=== PATIENT | male | born 1950 | race Caucasian/White ===

== ENCOUNTER 2017-02-03 21:48 | Inpatient (IN) | payer OTHER ==
[~2017-02-03] VITALS: Ht 167.6 cm; Wt 68.9 kg
[2017-02-03 23:35] VITALS: BP 149/79; PULSE 92; TEMP 37.1; O2SAT 96; Ht 167.6 cm; Wt 68.9 kg
[2017-02-04] MEDS ORDERED: LORAZEPAM 2 MG/ML 1 ML VIAL IV PRN (00:30)
[2017-02-04] MEDS ORDERED: POLYETHYLENE (MIRALAX) 17 GM PACK PO PRN (00:30)
[2017-02-04] MEDS ORDERED: ACETAMINOPHEN 325 MG TAB PO PRN (00:30)
[2017-02-04] MEDS ORDERED: MAGNESIUM HYDROXIDE SUSP 30 ML UDC PO PRN (00:30)
[2017-02-04] MEDS ORDERED: ONDANSETRON INJ 2 MG/ML 2 ML VIAL IV PRN (00:30)
[2017-02-04] MEDS ORDERED: ALUMINUM/MAGNESIUM/SIMETH (MAALOX MAX) 30 ML UDC PO PRN (00:30)
[2017-02-04] MEDS: PATIENT'S ALLERGY INFO NEEDS ENTERED SCH ×2 (01:25→01:45)
[2017-02-04] MEDS ORDERED: IPRA1AER2 INH (01:40)
[2017-02-04] MEDS ORDERED: ISM20 PO (01:40)
[2017-02-04] MEDS ORDERED: GUAI1TAB75 PO (01:40)
[2017-02-04] MEDS ORDERED: LISI-461 PO (01:45)
[2017-02-04] MEDS ORDERED: SYMIN INH (01:45)
[2017-02-04] MEDS ORDERED: HYDR-5688 PO (01:45)
[2017-02-04] MEDS ORDERED: OMEP20CA9 PO (01:45)
[2017-02-04] MEDS ORDERED: NIAC500T7 PO (01:45)
[2017-02-04] MEDS ORDERED: ATOR-54 PO (01:45)
[2017-02-04] MEDS ORDERED: NICO21DI35 TD (01:45)
[2017-02-04 04:00] VITALS: BP 140/81; PULSE 82; TEMP 36.6; O2SAT 95
[2017-02-04] MEDS ORDERED: HYDROCODONE/ACETAMOPHEN 5/325MG TAB PO PRN (04:30)
[2017-02-04] MEDS ORDERED: IPRATROPIUM BROMIDE/ALBUTEROL respimat INH INH PRN (04:30)
--- NOTE | 2017-02-04 06:17 | History and Physical ---
History & Physical Date & Time of Service: February 04, 2017 at 05:53 Chief Complaint: Seizure Primary Care Physician: No Doctor, Assigned History of Present Illness Source: patient 66 y/o M Hx HTN, HPL, COPD, splenectomy. Pt was recently treated for a pneumonia and had been d/cd from [facility] a few days prior. He was descending his stairway earlier in the day and states that he acutely lost strength in his R leg. He used the railing to maintain his balance and states that he lost all his strength when he arrived at the bottom of the stairs and collapsed on the landing. He remembers his walking in after a few minutes and states that he may have been having involuntary movements of his L hand. He though he might be having a seizure but he did not lose consciousness. He was unable to express himself for several minutes although he states that he clearly comprehended what was being said to him. The pt was transported to the hospital an states that his symptoms spontaneously resolved on route. He denies CP, SOB, N/V, FLOOD, visual deficits or recent fevers. He was transferred to [facility] following evaluation in the [place] ER. Past Medical/Surgical History 1) COPD 2) HTN 3) HPL 4) L4-5 stenosis 5) GERD 6) Splenectomy 7) Depression Family History Mother CAD - cause of fathers not known Social History Smokes between 10 cigarettes to 2 packs daily - does not drink alcohol - disabled Smoking Status: Current Some Day Smoker Allergies Coded Allergies: Ibuprofen (Verified Allergy, Unknown, GI SYMPTOMS, 02/04/17) Rosuvastatin (Verified Allergy, Unknown, RASH, 02/04/17) Simvastatin (Verified Allergy, Unknown, RASH, 02/04/17) muscle pain Unobtainable (Verified Allergy, Unknown, ANAPHYLAXIS, 02/04/17) unknown blood pressure medication pt just "shuts down" Home Medications Scheduled Atorvastatin (Lipitor), 1 TAB PO DAILY Budesonide/Formoterol Fumarate (Symbicort 160-4.5 Mcg/Act), 2 INHA INH BID Guaifenesin La (Guaifenesin Er), 600 MG PO Q12H Isosorbide Mononitrate (Isosorbide Mononitrate), 30 MG PO DAILY Lisinopril (Lisinopril), 1 TAB PO DAILY Niacinamide (Niacin), 500 MG PO DAILY Nicotine (Nicoderm Cq 21MG Patch), 1 PATCH TD DAILY Omeprazole (Prilosec), 1 CAP PO DAILY Scheduled PRN Hydrocodone/Acetaminophen 5MG/325MG ([place] 5MG/325MG), 1 TAB PO TID PRN for Pain Ipratropium-Albuterol (Combivent Respimat), 1 PUFFS INH Q4 PRN for Wheezing Review of Systems Constitutional: No chills, No fever, No sweats Eyes: No worsening of vision ENT: No hearing loss, No nasal symptoms Respiratory: No cough, No shortness of breath, No sputum, No wheezing Cardiovascular: No PND, No chest pain, No orthopnea Abdomen: No nausea, No pain, No vomiting Musculoskeletal: No joint pain, No muscle pain Genitourinary - Male: No dysuria, No hematuria, No urinary frequency, No urinary urgency Neurologic: + balance problems, + paralysis, + weakness, No memory loss Psychiatric: No depression symptoms Endocrine: No fatigue Hematologic / Lymphatic: No abnormal bleeding/bruising Integumentary: No rash Allergic / Immunologic: No environmental allergies Physical Exam Vital Signs Date Time Temp Pulse Resp B/P Pulse Ox O2 Delivery O2 Flow Rate FiO2 02/04/17 04:00 Nasal Cannula 2.0 02/04/17 04:00 36.6 82 18 140/81 95 Room Air 02/03/17 23:59 Nasal Cannula 2.0 02/03/17 23:35 37.1 92 22 149/79 96 Nasal Cannula 2.0 General Appearance: WD/WN, no apparent distress Head: normocephalic, atraumatic Eyes: normal inspection, PERRL, EOMI ENT: normal ENT inspection, pharynx normal Neck: supple, no JVD Respiratory/Chest: no respiratory distress, no accessory muscle use, + decreased breath sounds Cardiovascular: regular rate, rhythm, no edema, no gallop, no JVD, no murmur, normal peripheral pulses Abdomen/GI: normal bowel sounds, non tender, soft Back: normal inspection, normal range of motion Extremities/Musculoskelatal: normal inspection, no calf tenderness, normal capillary refill, no pedal edema, normal range of motion 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 Pt was recently treated for a pneumonia and had been d/cd from [facility] a few days prior. He was descending his stairway earlier in the day and states that he acutely lost strength in his R leg. He used the railing to maintain his balance and states that he lost all his strength when he arrived at the bottom of the stairs and collapsed on the landing. He remembers his walking in after a few minutes and states that he may have been having involuntary movements of his L hand. He though he might be having a seizure but he did not lose consciousness. He was unable to express himself for several minutes although he states that he clearly comprehended what was being said to him. The pt was transported to the hospital an states that his symptoms spontaneously resolved on route. He denies CP, SOB, N/V, FLOOD, visual deficits or recent fevers. 1) Acute neuro deficits - symptoms most likely represent acute R sided weakness with expressive aphasia and are consistent with a TIA rather than seizure activity. Movement of the L arm may have resulted from an inability to move the R arm. We will obtain a neurology consult, start the pt on Plavix and monitor on telemetry with neurochecks. He is scheduled for an MRI/MRA and carotid dopplers. Would not increase statin dose as he apparently has sensitivities to 2 alternative statins. 2) COPD - recent PNM - does not currently c/o SOB or fevers - cont prescribed inhalers - 02 as needed 3) HTN - hold Lisinopril due to suspicion of TIA. 4) Pt smokes up to 2 packs daily - informed that this may increase CVA risk and is generally unadvisable for health reasons Full code - Heparin prophylaxis Total time for this admit including review of labs, meds, EKG, imaging, resords from [place] - discussion with pt and ER attending - 38 min Level of Care Telemetry Advanced Directives Existing Living Will: No Existing Power of Weir Fisherman: No Resuscitation Status FULL RESUSCITATION VTE Prophylaxis VTE Risk Assessment Done? Y/N: Yes Risk Level: Low Given or contraindicated: Unfractionated heparin SQ
[2017-02-04] MEDS: ATORVASTATIN 20 MG TAB PO SCH (07:42)
[2017-02-04] MEDS: PANTOprazole SOD 40 MG TAB PO SCH (07:43)
[2017-02-04] MEDS: ISOSORBIDE MONONITRATE 30 MG TABCR PO SCH (07:43)
[2017-02-04] MEDS: GUAIFENESIN 600 MG TABCR PO SCH ×2 (07:43→20:49)
[2017-02-04] MEDS: NICOTINE 21 MG/24 HR TDSY TD SCH (07:44)
[2017-02-04 07:59] LABS: CHOLESTEROL/HDL RATIO 3.6
[2017-02-04 08:00] VITALS: BP 136/85; PULSE 70; TEMP 37; O2SAT 95
[2017-02-04] MEDS: BUDESONIDE/FORMOTEROL FUMARATE 160/4.5 60 PUFFS/INHALER INH SCH ×2 (08:04→20:52)
[2017-02-04 08:09] LABS: HEMATOCRIT 37.3 % (42-52); MEAN CELL VOLUME 70.1 fL (80-100); MEAN CORPUSCULAR HEMOGLOBIN 23.9 pg (25-34); MEAN PLATELET VOLUME 9.4 fL (7.4-10.4); PLATELET COUNT 315 K/uL (130-400); RED BLOOD COUNT 5.32 M/uL (4.7-6.1)
[2017-02-04 08:19] LABS: PARTIAL THROMBOPLASTIN RATIO 0.9; PROTHROMBIN TIME (PATIENT) 10.3 SECONDS (9.0-12.0)
[2017-02-04] MEDS: CLOPIDOGREL BISULFATE 75 MG TAB PO SCH (08:38)
[2017-02-04] MEDS ORDERED: LISINOPRIL 10 MG TAB PO SCH (09:00)
[2017-02-04 09:15] LABS: ESTIMATED AVERAGE GLUCOSE 131 mg/dl; HA1C FLAG Normal (Normal)
[2017-02-04 11:05] LABS: CALCIUM 8.3 mg/dl (8.5-10.1); CREATININE 0.83 mg/dl (0.60-1.40)
[2017-02-04 12:00] VITALS: BP 128/82; PULSE 112; TEMP 36.6; O2SAT 96
--- NOTE | 2017-02-04 12:57 | Neurology Consultation ---
Neurology Consultation Date of Consultation: February 04, 2017. Attending Physician: Shanice Mariee MD Primary Care Physician: No Doctor, Assigned Reason for Consultation: "Acute neuro deficits, transfer from [facility]" History of Present Illness Source: patient, hospital records The patient is a 66-year-old male who had complained of sudden weakness of the legs while walking down stairs yesterday resulting in a minor fall. He recalled having some involuntary movements of the left hand and was concerned that he may be having a seizure. There was no associated loss of consciousness or more generalized shaking of the limbs. He was initially taken to [facility] although subsequently transferred to [facility] for further evaluation and management. Past medical history notable for recent treatment for pneumonia at [facility], hypertension, COPD, and lumbar spinal stenosis. The admission history indicates the presence of associated aphasia. Currently, the patient does not have any specific neurological complaints. He recalls the fall that occurred while walking down his steps at home yesterday and indicates the event was preceded by a feeling of numbness and discomfort affecting his left leg, around the knee. He does admit that he has had orthopedic issues with the left leg previously. The patient also recalls having some difficulty with his speech at the time of the event and believes his speech sounded slurred. The patient also indicates that yesterday's event occurred around 3 in the afternoon. He had undergone a cardiac stress test earlier that morning. He had been feeling well and had gone out for some breakfast prior to returning home. Family History Family history notable for coronary artery disease in the mother Allergies Coded Allergies: Ibuprofen (Verified Allergy, Unknown, GI SYMPTOMS, 02/04/17) Rosuvastatin (Verified Allergy, Unknown, RASH, 02/04/17) Simvastatin (Verified Allergy, Unknown, RASH, 02/04/17) muscle pain Unobtainable (Verified Allergy, Unknown, ANAPHYLAXIS, 02/04/17) unknown blood pressure medication pt just "shuts down" Current Inpatient Medications Current Inpatient Medications Medications (Trade) Dose Ordered Sig/Bettina Route Start Time Stop Time Status Last Admin Dose Admin Acetaminophen (Tylenol Tab) 650 mg Q4H PRN PO 02/04/17 00:30 03/06/17 00:29 Al Hydrox/Mg Hydrox/Simethicone (Maalox Max Susp) 15 ml Q4H PRN PO 02/04/17 00:30 03/06/17 00:29 Magnesium Hydroxide (Milk Of Magnesia Susp) 30 ml Q12H PRN PO 02/04/17 00:30 03/06/17 00:29 Ondansetron HCl (Zofran Inj) 4 mg Q6H PRN IV 02/04/17 00:30 03/06/17 00:29 Polyethylene (Miralax Powder Packet) 17 gm DAILY PRN PO 02/04/17 00:30 03/06/17 00:29 Lorazepam (Ativan Inj) 2 mg Q4H PRN IV 02/04/17 00:30 03/06/17 00:29 Atorvastatin Calcium (Lipitor Tab) 20 mg DAILY PO 02/04/17 09:00 03/06/17 08:59 02/04/17 07:42 20 MG Budesonide/ Formoterol Fumarate (Symbicort 160/ 4.5 Inh) 1 puffs BID INH 02/04/17 09:00 03/06/17 08:59 02/04/17 08:04 1 PUFFS Guaifenesin (Mucinex Contr Rel Tab) 600 mg Q12H PO 02/04/17 09:00 03/06/17 08:59 02/04/17 07:43 600 MG Acetaminophen/ Hydrocodone Bitart ([place] 5/325 Tab) 1 tab TID PRN PO 02/04/17 04:30 02/18/17 04:29 Albuterol/ Ipratropium (Combivent Respimat Inh) 1 puffs Q4 PRN INH 02/04/17 04:30 03/06/17 04:29 Isosorbide Mononitrate (Imdur Ext Rel Tab) 30 mg DAILY PO 02/04/17 09:00 03/06/17 08:59 02/04/17 07:43 30 MG Nicotine (Nicoderm Cq 21MG Patch) 1 patch DAILY TD 02/04/17 09:00 03/06/17 08:59 02/04/17 07:44 1 PATCH Pantoprazole Sodium (Protonix Tab) 40 mg DAILY PO 02/04/17 09:00 03/06/17 08:59 02/04/17 07:43 40 MG Miscellaneous (Remove Nicoderm Patch) 1 ea DAILY N/A 02/04/17 09:00 03/06/17 08:59 02/04/17 08:04 1 EA Clopidogrel Bisulfate (plAVix TAB) 75 mg QAM PO 02/04/17 09:00 03/06/17 08:59 02/04/17 08:38 75 MG Heparin Sodium (Porcine) (Heparin Sq 5000 Unit/0.5ml) 5,000 unit Q8 SQ 02/04/17 06:00 03/06/17 05:59 UNV Review of Systems The patient denies headache, fever, chills, vision change, hearing loss, chest pain, palpitations, shortness of breath, coughing, wheezing, abdominal pain, diarrhea, dysuria, incontinence, muscle pain, joint pain, swollen glands, rash, depression or anxiety. A full 10 point review of systems was obtained from this patient with pertinent positives and negatives described in history of present illness and otherwise listed above. Physical Exam Vital Signs (Past 24 Hrs): Date Time Temp Pulse Resp B/P Pulse Ox O2 Delivery O2 Flow Rate FiO2 02/04/17 04:00 Nasal Cannula 2.0 02/04/17 04:00 36.6 82 18 140/81 95 Room Air 02/03/17 23:59 Nasal Cannula 2.0 02/03/17 23:35 37.1 92 22 149/79 96 Nasal Cannula 2.0 The patient is a thin, elderly male, lying in bed, no acute distress. He is alert and oriented to person place and time. Attention and concentration normal. Recent and remote memory intact. He is able to name objects, repeat phrases, and reads text without difficulty. Fund of knowledge normal. Vocabulary normal. Visual lloyd full to confrontation. Visual acuity normal. Pupils equal round reactive to light and accommodation. Eye movements normal. Facial sensation intact. There is no facial weakness or facial droop. Palate elevates to midline. Tongue protrudes to midline. Shoulder shrug and hearing intact bilaterally. Sensation intact to light touch, temperature, vibration, and proprioception for all 4 limbs. There is no dysmetria with finger to nose or heel to langley bilaterally. Deep tendon reflexes are 2+ with the arms and legs bilaterally. Plantar responses downgoing bilaterally. Ophthalmoscopic examination reveals normal-appearing optic nerves and posterior elements. No papilledema or hemorrhages. Carotid pulses normal bilaterally, no bruits to auscultation. Musculoskeletal examination reveals normal strength and tone for all 4 limbs proximally and distally. No atrophy. No abnormal movements. Gait and station normal. Laboratory Results Past 24 Hours: 02/04/17 07:39 Test 02/04/17 07:05 02/04/17 07:39 Triglycerides Level 192 mg/dl (0-150) Cholesterol Level 171 mg/dl (0-200) HDL Cholesterol 47 mg/dl LDL Cholesterol, Calculated 86 mg/dl VLDL Cholesterol, Calculated 38 mg/dl Cholesterol/HDL Ratio 3.6 Red Blood Count 5.32 M/uL (4.7-6.1) Mean Corpuscular Volume 70.1 fL (80-100) Mean Corpuscular Hemoglobin 23.9 pg (25-34) Mean Corpuscular Hemoglobin Concent 34.0 g/dl (32-36) RDW Standard Deviation 39.9 fL (36.4-46.3) RDW Coefficient of Variation 16.7 % (11.5-14.5) Mean Platelet Volume 9.4 fL (7.4-10.4) Nucleated RBC Absolute Count (auto) 0.21 K/uL (0-0) Nucleated Red Blood Cells % 1.1 % Prothrombin Time 10.3 SECONDS (9.0-12.0) Prothromb Time International Ratio 1.0 (0.9-1.1) Activated Partial Thromboplast Time 23.6 SECONDS (21.0-31.0) Partial Thromboplastin Ratio 0.9 Impression 66-year-old male who experienced a minor fall while walking down some steps at home yesterday afternoon. He recalls having some leg weakness and slurred speech at the time of the event. These symptoms have resolved. At this point, the exact cause of this patient's presenting symptoms is a bit unclear. However , he may have had a vertebrobasilar TIA. There is no convincing evidence for a seizure disorder at this time. To what extent this patient's history of lumbar spinal stenosis and other orthopedic issues affecting the left lower limb may have contributed to his presentation is uncertain. Plan MRI of the brain to evaluate for a possible small ischemic infarct. MR angiography of the head and neck as ordered. Given the possibility of TIA, antiplatelet therapy is appropriate unless if an indication for anticoagulation is found.
[2017-02-04] MEDS ORDERED: NURSING VERBAL MED ORDER ONE (15:15)
--- NOTE | 2017-02-04 16:15 | DIAGNOSTIC IMAGING REPORT ---
MR ANGIOGRAM OF THE BRAIN CLINICAL HISTORY: Transient ischemic attack. COMPARISON STUDY: No priors. TECHNIQUE: 3-D [id number] MR angiography of the intracranial circulation is performed. 3-D tumble views are created and assessed. IV contrast was not administered for this examination. FINDINGS: The internal carotid arteries are widely patent bilaterally, as are the anterior and middle cerebral arteries. The vertebrobasilar system and posterior cerebral arteries are widely patent. The left vertebral artery is dominant in the right vertebral artery is diminutive. 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 This is best seen on axial image #132. No additional aneurysm is identified. There is no high-grade stenosis or focal vessel cutoff seen throughout the intracranial circulation. The brain parenchyma is normal as visualized. IMPRESSION: 1. 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 2. Otherwise unremarkable MR angiogram of the brain. Electronically signed by: Brian Ricks M.D. 02/04/2017 4:13 PM Dictated Date/Time: 02/04/2017 4:09 PM
--- NOTE | 2017-02-04 16:40 | DIAGNOSTIC IMAGING REPORT ---
MRI OF THE BRAIN COMBO CLINICAL HISTORY: Seizure. Transient ischemic attack. COMPARISON STUDY: No priors. TECHNIQUE: MRI of the brain was performed utilizing various T1 and T2-weighted sequences in the axial, sagittal, and coronal planes. Contrast-enhanced sequences were acquired following the administration of 6.5 cc of Gadavist. The examination is performed using the seizure protocol. FINDINGS: Brain parenchyma: There are numerous foci of T2 signal in amount within the subcortical and periventricular white matter typical appearance for microangiopathic disease. There is no hemorrhage or mass effect. There is no restricted diffusion to suggest acute ischemia. No enhancing mass lesion is identified on the postcontrast images. Irwin-white matter differentiation is preserved. No extra-axial fluid collection is seen. The cerebellar tonsils are normal in configuration. Ventricles, sulci, and cisterns: Prominent significant involutional change. Pituitary and sella: Unremarkable. Intracranial vasculature: Normal flow voids are maintained at the skull base. Orbits: The bony orbits are grossly intact. Orbital contents are normal in appearance. Sinuses and mastoids: There is a large right mastoid effusion. The left mastoid air cells and the paranasal sinuses are clear. Calvarium: Unremarkable. Cervical cord: Partially visualized cervical spinal cord is normal in morphology and signal intensity. IMPRESSION: 1. There is no hemorrhage, enhancing mass, or evidence of acute ischemia. 2. There are numerous foci of T2 signal abnormality identified throughout the subcortical and periventricular white matter. This is typical appearance for microangiopathic change. Clinical correlation will be required. 3. Large right mastoid effusion. Electronically signed by: Brian Ricks M.D. 02/04/2017 4:38 PM Dictated Date/Time: 02/04/2017 4:33 PM
[2017-02-04] MEDS: HEPARIN SOD 5000 UNIT/0.5 ML CARP SQ SCH ×2 (16:44→20:52)
--- NOTE | 2017-02-04 16:56 | DIAGNOSTIC IMAGING REPORT ---
MR ANGIOGRAM OF THE NECK COMBO CLINICAL HISTORY: Transient ischemic attack. Seizure. COMPARISON STUDY: No priors.. TECHNIQUE: Axial 3-D subtraction imaging is performed. [id number] MR angiography of the neck is performed. Subsequently, following the IV administration of 6.5 cc of Gadavist coronal MR angiogram of the neck was performed to corroborate the findings. 3-D reformats are created and assessed. All measurements were calculated based on NASCET criteria. FINDINGS: Visualized portions of the thoracic aorta are normal in caliber. The arch demonstrates 3-vessel anatomy. The subclavian arteries are widely patent bilaterally. The right common carotid artery is widely patent, as are the right internal and external carotid arteries. Mild atherosclerotic irregularity is noted in the right carotid bulb and the right proximal internal carotid artery. The left common carotid artery is widely patent. There is approximately 50% luminal narrowing at the origin of the left internal carotid artery. The remainder of the left internal carotid artery and the left external carotid artery are widely patent. The vertebral arteries are patent bilaterally. The left vertebral artery is dominant. The right vertebral artery is diminutive. The internal jugular veins are patent. The partially imaged intracranial vessels appear patent. A 3 mm aneurysm is again seen at the origin of the left anterior cerebral artery. See report of MR angiogram of the brain performed concurrently for detailed intracranial findings. IMPRESSION: 1. There is approximately 50% luminal narrowing at the origin of the left internal carotid artery. 2. The neck vessels are otherwise widely patent. 3. The right vertebral artery is diminutive. Electronically signed by: Brian Ricks M.D. 02/04/2017 4:54 PM Dictated Date/Time: 02/04/2017 4:48 PM
[2017-02-04] MEDS ORDERED: ALBUT/IPRATROP 3MG/0.5MG NEB 3 ML VIAL INH ONE (18:25)
[2017-02-04] MEDS ORDERED: LISINOPRIL 10 MG TAB PO ONE (18:47)
--- NOTE | 2017-02-04 18:49 | Hospitalist Progress Note ---
Hospitalist Progress Note Date of Service February 04, 2017. Subjective Pt evaluation today including: conversation w/ patient Pt feels completely back to normal. There was a question of 2 runs of VT on tele but RN reports likely artifact as he was shaking some dice playing a game when it happened and was asymptomatic. Results of MRI/MRAs reviewed with him. He feels much improved from his PNA and recent hospitalization from [place]. He had a Nuc Stress yesterday as an outpatient and it was after he came home he had this total body weakness and slurred speech with complete consciousness that lasted 15-20 min. Today denies any CP, has some SOB with minimal exertion, denies FLOOD or vision changes. He is quite jovial Eyes: No worsening of vision ENT: + tinnitus (chronic), No hearing loss Respiratory: + dyspnea on exertion, + shortness of breath, No cough, No sputum Cardiovascular: No chest pain Abdomen: No pain Musculoskeletal: No joint pain All Other Systems: Reviewed and Negative Objective Vital Signs Date Time Temp Pulse Resp B/P Pulse Ox O2 Delivery O2 Flow Rate FiO2 02/04/17 16:00 Room Air 02/04/17 12:00 36.6 112 18 128/82 96 02/04/17 12:00 Room Air 02/04/17 08:00 37.0 70 18 136/85 95 Room Air 02/04/17 08:00 Room Air 02/04/17 04:00 Nasal Cannula 2.0 02/04/17 04:00 36.6 82 18 140/81 95 Room Air 02/03/17 23:59 Nasal Cannula 2.0 02/03/17 23:35 37.1 92 22 149/79 96 Nasal Cannula 2.0 Physical Exam General Appearance: no apparent distress, + thin Eyes: normal inspection, sclerae normal ENT: hearing grossly normal Neck: supple, no adenopathy, thyroid normal, trachea midline, + pertinent finding (no TTP over mastoid bones) Respiratory/Chest: no respiratory distress, no accessory muscle use, + decreased breath sounds (diminished significantly throughout with very faint wheezing,not moving air well) Cardiovascular: no edema, no gallop, + tachycardia (with reg rhythm), + systolic murmur (2/6 at RUSB) Abdomen: normal bowel sounds, non tender, soft, + pertinent finding ( incisional scars on right and left side) Extremities: non-tender, no pedal edema, no calf tenderness Neurologic/Psychiatric: no motor/sensory deficits, alert, normal mood/affect, oriented x 3 Skin: normal color, warm/dry, no rash Lymphatic: no adenopathy Laboratory Results Last 24 Hours Test 02/04/17 07:05 02/04/17 07:39 02/04/17 10:25 Estimated Average Glucose 131 mg/dl Hemoglobin A1c 6.2 % Triglycerides Level 192 mg/dl Cholesterol Level 171 mg/dl HDL Cholesterol 47 mg/dl LDL Cholesterol, Calculated 86 mg/dl VLDL Cholesterol, Calculated 38 mg/dl Cholesterol/HDL Ratio 3.6 White Blood Count 19.00 K/uL Red Blood Count 5.32 M/uL Hemoglobin 12.7 g/dL Hematocrit 37.3 % Mean Corpuscular Volume 70.1 fL Mean Corpuscular Hemoglobin 23.9 pg Mean Corpuscular Hemoglobin Concent 34.0 g/dl RDW Standard Deviation 39.9 fL RDW Coefficient of Variation 16.7 % Platelet Count 315 K/uL Mean Platelet Volume 9.4 fL Nucleated RBC Absolute Count (auto) 0.21 K/uL Nucleated Red Blood Cells % 1.1 % Prothrombin Time 10.3 SECONDS Prothromb Time International Ratio 1.0 Activated Partial Thromboplast Time 23.6 SECONDS Partial Thromboplastin Ratio 0.9 Sodium Level 136 mmol/L Potassium Level 4.0 mmol/L Chloride Level 100 mmol/L Carbon Dioxide Level 29 mmol/L Anion Gap 7.0 mmol/L Blood Urea Nitrogen 24 mg/dl Creatinine 0.83 mg/dl Est Creatinine Clear Calc Drug Dose 81.1 ml/min Estimated GFR () 107.8 Estimated GFR (Non- 93.0 BUN/Creatinine Ratio 29.0 Random Glucose 82 mg/dl Calcium Level 8.3 mg/dl Total Bilirubin 0.9 mg/dl Aspartate Amino Transf (AST/SGOT) 27 U/L Alanine Aminotransferase (ALT/SGPT) 71 U/L Alkaline Phosphatase 44 U/L Total Protein 6.1 gm/dl Albumin 3.1 gm/dl Globulin 3.0 gm/dl Albumin/Globulin Ratio 1.0 Assessment and Plan 66 y/o M Hx HTN, HPL, COPD, splenectomy. Pt was recently treated for a pneumonia and had been d/cd from [facility] a few days prior. He was descending his stairway earlier in the day and states that he acutely lost strength in his R knee and then at the bottom of the stairs he felt his whole body become flaccid and had great difficulty speaking. He was unable to express himself for several minutes although he states that he clearly comprehended what was being said to him. The pt was transported to the hospital an states that his symptoms spontaneously resolved on route like a switch was turned off. He denies CP, SOB, N/V, FLOOD, visual deficits or recent fevers. 1) Acute neuro deficits/whole body weakness - completely resolved since prior to admission. MRI/MRA and carotid dopplers showed no CVA but does have left GRICELDA 3 mm aneurysm which is likely incidental finding. Also with left ICA stenosis 50 % which he states he has known about. Possible NSVT on tele but more likely interference. Neurology evaluation recommended imaging and then I discussed findings with Neuro on phone. Unclear what caused this but seems very atypical for TIA as really involved entire body - Would not increase statin dose as he apparently has sensitivities to 2 alternative statins. -encouraged continued smoking cessation -Cardiology consult to help look for arrhythmias -he may have had an ECHO at recent [place] Hospitalization for PNA and chest pain -request those records -F/u with Neuro as outpt and can get routine NS eval for aneurysm and consider EEG as outpt -continue Plavix -continue observation on telemetry for a-fib 2) COPD - recent PNM - resolving- does not currently c/o SOB or fevers - Duobebs qid - 02 as needed -smoking cessation Nicotine patch -finish out 4 more days of prednisone taper as Rxd by [facility] -continue SYmbicort, COmbivent on dc -leukocytosis likely secondary to prednisone -f/u with PCP and/or Pulm as outpt -check CXR in 3-4 weeks to ensure resolution 3) HTN/Left ICA stenosis 50%/Murmur- -ok to restart lisinopril -continue statin and Plavix, isosorbide -can check ECHO here but try to obtain records from [place] first 4) Pt smokes up to 2 packs daily -quit 2 weeks ago 5) Right large mastoid effusion-has h/o Tympanostomy tube a few years ago, no current symptoms in ear, no fevers or pain, no hearing loss or vertigo -recommend routine outpt f/u with his ENT Full code - Heparin prophylaxis
[2017-02-04 19:16] VITALS: PULSE 111; O2SAT 94
[2017-02-04] MEDS: ALBUT/IPRATROP 3MG/0.5MG NEB 3 ML VIAL INH SCH (19:16)
[2017-02-04 19:43] VITALS: BP 114/73; PULSE 109; TEMP 37; O2SAT 95
--- NOTE | 2017-02-04 22:36 | DIAGNOSTIC IMAGING REPORT ---
ULTRASOUND OF THE CAROTID ARTERIES CLINICAL HISTORY: Transient ischemic attack. Seizure. COMPARISON STUDY: MR angiogram of the neck dated 02/04/2017. TECHNIQUE: Real-time, grayscale, and color Doppler sonography of the carotid arteries is performed. Images are reviewed in the transverse and longitudinal planes. FINDINGS: Blood pressure in the right arm measures 102/67 and blood pressure in the left arm measures 137/73. The carotid arteries are patent bilaterally and demonstrate antegrade flow. There is moderate echogenic atherosclerotic plaque seen the carotid bulbs bilaterally. Normal doppler arterial waveforms are seen throughout. Velocity measurements are listed below. Common carotid peak systolic velocity (cm/sec): RIGHT: 101 LEFT: 125 ICA proximal peak systolic velocity (cm/sec): RIGHT: 69 LEFT: 125 ICA mid peak systolic velocity (cm/sec): RIGHT: 71 LEFT: 78 ICA distal peak systolic velocity (cm/sec): RIGHT: 51 LEFT: 48 ICA/CC peak systolic ratio: RIGHT: 0.7 LEFT: 1.0 Antegrade flow was shown in the vertebral arteries. The left vertebral artery waveform is greater than the right, likely due to a diminutive right vertebral artery. The external carotid arteries are patent. The subclavian arteries are patent bilaterally. IMPRESSION: 1. Atherosclerotic plaque with evidence of 50-69% stenosis in the left proximal internal carotid artery by velocity criteria. 2. There is no sonographic evidence of hemodynamically significant stenosis in the right carotid arterial system. 3. Antegrade flow is shown in the vertebral arteries. Electronically signed by: Brian Ricks M.D. 02/04/2017 10:35 PM Dictated Date/Time: 02/04/2017 10:32 PM
[2017-02-04 23:48] VITALS: BP 106/69; PULSE 89; TEMP 36.6; O2SAT 94
[2017-02-05 04:36] VITALS: BP 102/70; PULSE 83; TEMP 36.5; O2SAT 96
[2017-02-05 05:24] LABS: BASO % 0.1 %; BASO ABS # 0.02 K/uL (0-0.2); COMPLETE YES; EOS % 0.1 %; LYMPH ABS # 2.06 K/uL (1.2-3.4); MEAN CELL VOLUME 71.4 fL (80-100); MEAN CORPUSCULAR HEMOGLOBIN 24.5 pg (25-34); MEAN CORPUSCULAR HGB CONC 34.3 g/dl (32-36); MEAN PLATELET VOLUME 9.3 fL (7.4-10.4); MONO % 7.4 %; NEUT % 75.4 %; PLATELET COUNT 294 K/uL (130-400); RED BLOOD COUNT 5.18 M/uL (4.7-6.1); WHITE BLOOD COUNT 15.89 K/uL (4.8-10.8)
[2017-02-05] MEDS: HEPARIN SOD 5000 UNIT/0.5 ML CARP SQ SCH ×2 (05:37→13:28)
[2017-02-05 05:55] LABS: BUN/CREATININE RATIO 25.4 (10-20); CREATININE 0.85 mg/dl (0.60-1.40); MAGNESIUM 2.3 mg/dl (1.8-2.4); POTASSIUM 4.6 mmol/L (3.5-5.1)
[2017-02-05] MEDS: ALBUT/IPRATROP 3MG/0.5MG NEB 3 ML VIAL INH SCH ×3 (07:04→15:59)
[2017-02-05] MEDS: PANTOprazole SOD 40 MG TAB PO SCH (07:29)
[2017-02-05] MEDS: BUDESONIDE/FORMOTEROL FUMARATE 160/4.5 60 PUFFS/INHALER INH SCH (07:29)
[2017-02-05] MEDS: CLOPIDOGREL BISULFATE 75 MG TAB PO SCH (07:30)
[2017-02-05] MEDS: ISOSORBIDE MONONITRATE 30 MG TABCR PO SCH (07:30)
[2017-02-05] MEDS: GUAIFENESIN 600 MG TABCR PO SCH (07:30)
[2017-02-05] MEDS: ATORVASTATIN 20 MG TAB PO SCH (07:30)
[2017-02-05 07:49] VITALS: BP 133/81; PULSE 87; TEMP 36.4; O2SAT 95
[2017-02-05] MEDS: NICOTINE 21 MG/24 HR TDSY TD SCH (08:34)
[2017-02-05] MEDS ORDERED: LISINOPRIL 10 MG TAB PO SCH (09:00)
[2017-02-05 11:12] VITALS: PULSE 97; O2SAT 98
[2017-02-05 11:25] VITALS: BP 130/82; PULSE 96; TEMP 36.6; O2SAT 97
--- NOTE | 2017-02-05 13:41 | ECHOCARDIOGRAM REPORT ---
*NOTICE TO RECEIVING DEMOCRAT AGENCY This information is strictly Confidential and protected under [place] law. [place] law prohibits you from making any further disclosure of this information unless further disclosure is expressly permitted by the written consent of the person to whom it pertains or is authorized by law. A general authorization for the release of medical or other information is not sufficient for this purpose. Hospital accepts no responsibility if the information is made available to any other person, INCLUDING THE PATIENT. Interpretation Summary * Name: SABRINA LOCO Study Date: 02/05/2017 07:06 AM BP: 102/70 mmHg * Patient Location: C.2T\S\S238\S\2 HR: 83 * : 1950 (M/d/yyyy) Gender: Male Height: 66 in * Age: 66 yrs Ethnicity: CA Weight: 151 lb * Ordering Physician: Shanice Mariee * Performed By: Mariaelena Duncan * * Reason For Study: CEREBRAL ISCHEMIA/ EMBOLUS * BSA: 1.8 m2 * -- Conclusions -- * 1. Normal left ventricular size and systolic function. EF 60-65%. No regional wall motion abnormalities. No left ventricular hypertrophy. Type 1 diastolic dysfunction * 2. Small right to left inter atrial shunt following agitated saline injection with Valsalva, suggesting PFO. * 3. No significant valvular abnormalities. * 4. No prior study available for comparison. Procedure Details * A complete two-dimensional transthoracic echocardiogram was performed (2D, M-mode, Doppler and color flow Doppler). * A saline contrast injection was performed to assess for cardiac shunting. * The injection was performed through an intravenous line in the right arm. * The attending nurse who injected the saline contrast was ROGELIO WINCHESTER RN. * A total of 20 cc of agitated saline was given. Left Ventricle * Normal left ventricular size and systolic function. EF 60-65%. No regional wall motion abnormalities. No left ventricular hypertrophy. Type 1 diastolic dysfunction Right Ventricle * The right ventricle is normal in size and function. * The right ventricular systolic function is normal as assessed by tricuspid annular plane systolic excursion (TAPSE) (normal >1.5 cm). Atria * The left atrial size is normal. * Right atrial size is normal. * Small right to left inter atrial shunt following agitated saline injection with Valsalva, suggesting PFO. Mitral Valve * The mitral valve leaflets appear normal. There is no evidence of stenosis, fluttering, or prolapse. * There is trace mitral regurgitation. Tricuspid Valve * The tricuspid valve is not well visualized, but is grossly normal. * There is no tricuspid stenosis. * Significant tricuspid regurgitation is absent. Aortic Valve * The aortic valve is trileaflet. * No hemodynamically significant valvular aortic stenosis. * No aortic regurgitation is present. Pulmonic Valve * The pulmonary valve is inadequately visualized, but the Doppler data is adequate for interpretation. * There is no pulmonic valvular stenosis. * There is no significant pulmonary regurgitation. Great Vessels * The aortic root is normal size. Pericardium/Pleural * There is no pericardial effusion. Great Vessels * Normal inferior vena cava size and collapsability with sniff indicates a normal right atrial pressure of 3 mmHg MMode 2D Measurements and Calculations IVSd 1.1 cm IVSs 1.6 cm LVIDd 4.5 cm LVIDs 3.1 cm LVPWd 0.62 cm LVPWs 1.3 cm IVS/LVPW 1.8 FS 30.9 % EDV(Teich) 91.8 ml ESV(Teich) 37.9 ml EF(Teich) 58.7 % EDV(cubed) 90.3 ml ESV(cubed) 29.8 ml EF(cubed) 67.0 % % IVS thick 46.0 % % LVPW thick 109.5 % LV mass(C)d 126.8 grams LV mass(C)dI 71.5 grams/m\S\2 LV mass(C)s 159.1 grams LV mass(C)sI 89.7 grams/m\S\2 SV(Teich) 53.9 ml SI(Teich) 30.4 ml/m\S\2 SV(cubed) 60.5 ml SI(cubed) 34.1 ml/m\S\2 Ao root diam 3.0 cm Ao root area 6.9 cm\S\2 ACS 1.6 cm LA dimension 3.2 cm LA/Ao 1.1 LVOT diam 2.1 cm LVOT area 3.4 cm\S\2 LVAd ap4 27.0 cm\S\2 LVLd ap4 8.1 cm EDV(MOD-sp4) 74.1 ml EDV(sp4-el) 75.9 ml LVAs ap4 15.2 cm\S\2 LVLs ap4 6.3 cm ESV(MOD-sp4) 30.8 ml ESV(sp4-el) 31.1 ml EF(MOD-sp4) 58.4 % EF(sp4-el) 59.0 % LVAd ap2 19.4 cm\S\2 LVLd ap2 6.9 cm EDV(MOD-sp2) 47.0 ml EDV(sp2-el) 46.5 ml LVAs ap2 10.0 cm\S\2 LVLs ap2 6.0 cm ESV(MOD-sp2) 13.6 ml ESV(sp2-el) 14.1 ml EF(MOD-sp2) 71.0 % EF(sp2-el) 69.6 % LVLd %diff -18.33 % EDV(MOD-bp) 63.7 ml LVLs %diff -4.61 % ESV(MOD-bp) 20.8 ml EF(MOD-bp) 67.4 % SV(MOD-sp4) 43.3 ml SI(MOD-sp4) 24.4 ml/m\S\2 SV(MOD-sp2) 33.4 ml SI(MOD-sp2) 18.8 ml/m\S\2 SV(MOD-bp) 42.9 ml SI(MOD-bp) 24.2 ml/m\S\2 SV(sp4-el) 44.7 ml SI(sp4-el) 25.2 ml/m\S\2 SV(sp2-el) 32.3 ml SI(sp2-el) 18.2 ml/m\S\2 Doppler Measurements and Calculations MV E max yesika 63.4 cm/sec MV A max yesika 97.1 cm/sec MV E/A 0.65 MV dec time 0.25 sec Ao V2 max 134.8 cm/sec Ao max PG 7.3 mmHg Ao max PG (full) 0.96 mmHg TRACY(V,A) 3.1 cm\S\2 TRACY(V,D) 3.1 cm\S\2 LV V1 max PG 6.3 mmHg LV V1 max 125.6 cm/sec PA V2 max 83.6 cm/sec PA max PG 2.8 mmHg
[2017-02-05] MEDS ORDERED: PLV75 PO (14:13)
[2017-02-05] MEDS ORDERED: PRD10 PO (14:13)
--- NOTE | 2017-02-05 14:36 | Discharge Instructions ---
Discharge Instructions Date of Service February 05, 2017. Admission Reason for Admission: Possible Seizure Discharge Discharge Diagnosis / Problem: Weakness Discharge Goals Goal(s): Improve disease control, Diagnostic testing, Therapeutic intervention Activity Recommendations Activity Limitations: resume your previous activity Driving or Machine Use: no limitations . Instructions / Follow-Up Instructions / Follow-Up You were admitted for an episode of whole body weakness and difficulty with speech. It is unclear what the cause of this was but may have been related to stress and possibly from not taking your medications the morning of the your stress test, and perhaps just from the stress of the test itself. Nonetheless, you had a normal brain MRI. You did not have a stroke, and the Neurologist thought it was unlikely that you had a seizure. You do have a moderate blockage in your left carotid artery. You had an ECHO (ultrasound) of the heart which showed a Patent Foramen Ovale (PFO; a whole in your heart). This is fairly common, but does potentially put you at risk for having strokes. It is recommended that you remain on Plavix to thin your blood and prevent strokes. You should follow up with your PCP at the [facility] within 1 week. As for your recent pneumonia, you should have a repeat chest xray in 3-4 weeks to make sure it is resolved. Please finish out your prednisone as scheduled over the next 2 days. You should follow up with the Neurologist Dr. Hale within 1 month. He may refer you to a Neurosurgeon for the 3 millimeter aneurysm that was found in your brain to see if you need to have it repaired. This aneurysm did not cause the symptoms that you had, but does need to be followed. You were also incidentally noted to have a large amount of fluid in the bone behind your right ear which may have to do with fluid in the ears. Please follow up with your ENT Surgeon within 1 month as well. Current Hospital Diet Patient's current hospital diet: AHA Diet (Heart Healthy) Discharge Diet Recommended Diet: AHA Diet (Heart Healthy) Procedures Procedures Performed: Echocardiogram MRI brain MRA Head Carotid artery US Pending Studies Studies pending at discharge: no Laboratory Results Hemoglobin A1c Test 02/04/17 07:05 Range/Units Estimated Average Glucose 131 mg/dl Hemoglobin A1c 6.2 H 4.5-5.6 % Lipid Panel Test 02/04/17 07:05 Range/Units Triglycerides Level 192 H 0-150 mg/dl Cholesterol Level 171 0-200 mg/dl HDL Cholesterol 47 mg/dl Cholesterol/HDL Ratio 3.6 LDL Cholesterol, Calculated 86 mg/dl Medical Emergencies . Who to Call and When: Medical Emergencies: If at any time you feel your situation is an emergency, please call 911 immediately. . Non-Emergent Contact Non-Emergency issues call your: Primary Care Provider Call Non-Emergent contact if: you have a fever, you have any medication questions you have weakness again or shortness of breath. . . "Provider Documentation" section prepared by Shanice Mariee. . VTE Core Measure Inpt VTE Proph given/why not?: Unfractionated heparin SQ
[2017-02-05] MEDS ORDERED: IMDSR30 PO (15:03)
[2017-02-05 15:06] VITALS: BP 130/82; PULSE 96; TEMP 36.6; O2SAT 97
--- NOTE | 2017-02-05 16:46 | CARDIOLOGY CONSULTATION ---
DATE OF CONSULTATION: 02/05/2017 TIME: 1457 p.m. CONSULTING PHYSICIAN: Dr. Mariee. REASON FOR CONSULTATION: Possible ventricular tachycardia. HISTORY OF PRESENT ILLNESS: Mr. Martinez is a very pleasant 66-year-old gentleman with a history of COPD, hypertension, dyslipidemia and recent pneumonia who presented to [facility] with TIA symptoms. While he was walking down the steps prior to presentation, he had some numbness in his left knee and it became weak. He then felt weak in all of his limbs. He was unable to continue walking at that point. His came into the house and found him lying on the floor. He denies any syncope. He recalls the entire event. He was unable to express his thoughts through speech saying only a few words from what he can recall. His states that he was slurring his words. He then states that he began convulsing uncontrollably. EMS was called. En route to the hospital his symptoms completely resolved and have not returned. He has been evaluated by neurology, Dr. Hale. He underwent a brain MRI and MRA. There was no evidence of stroke. Carotid duplex demonstrated moderate plaque in the left proximal ICA of 50%-69%. The brain MRA demonstrated 3 mm aneurysm at the origin of the left anterior cerebral artery. He has not had any further neurologic symptoms. Antiplatelet therapy was recommended by neurology. He had been on aspirin in the past and did not tolerate it due to bruising and therefore he prefers to be on Plavix. He had a stress test 2 days ago in [place]. 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 He has been placed on isosorbide mononitrate. He does get chest discomfort intermittently. He describes the chest discomfort as a substernal chest discomfort that last for approximately 30 seconds. It does not radiate. There is no associated diaphoresis or shortness of breath. It resolves within a few deep breaths, approximately 30 seconds. Symptoms occur at rest and are not associated with exertion. There is no specific trigger. He did have an episode earlier today. These episodes are not new. He recently has been hospitalized for pneumonia. He has progressively worsening dyspnea with exertion over time which has been attributed to COPD. His stress test results have not yet been made available, but he plans on receiving these results on Monday or Monday from the directions that he was given from the facility that performed the test. They stated that they would be available in the next few days. Records have been requested by the primary service, but are not yet available at the time of this dictation. REVIEW OF SYSTEMS: As above. He also denies melena, hematochezia, hematuria. Review of systems is otherwise negative. He feels back to baseline. PAST MEDICAL HISTORY: 1. COPD. 2. Pneumonia. 3. Hypertension. 4. Dyslipidemia. 5. Lumbar stenosis. 6. GERD. 7. Splenectomy. 8. Depression. 9. Chest pain. HOME MEDICATIONS: Include lisinopril 10 mg daily, atorvastatin 20 mg daily, isosorbide mononitrate 30 mg daily. Please see full list. HOSPITAL MEDICATIONS: Include atorvastatin 20 mg daily, Plavix 75 mg daily, heparin 5,000 units subQ q. 8 hours, isosorbide mononitrate 30 mg daily, lisinopril 10 mg daily, nicotine patch, Protonix 40 mg daily, prednisone 10 mg p.o. b.i.d. ALLERGIES AND INTOLERANCES: IBUPROFEN CAUSES GI UPSET. ROSUVASTATIN STATIN, RASH. SIMVASTATIN, RASH AND OTHER MEDICATIONS CAUSED ISSUES AND THEY ARE CHARTED SOME TYPE OF BLOOD PRESSURE MEDICATION. FULL DETAILS NOT KNOWN. SOCIAL HISTORY: He smoked for more than 50 years and has smoked at least 2 packs per day at times. He has weaned down to roughly half pack of cigarettes until 2 weeks ago when he has quit altogether. He was congratulated and urged to remain smoke free. He consumed alcohol in the past, but no longer consumes alcohol. He denies drug abuse. He is and his is present at the bedside. They have 2 children. He also has grandchildren and great grandchildren. He is a disabled . FAMILY HISTORY: Mother shortly after CABG at the age of 78. PHYSICAL EXAMINATION: VITAL SIGNS: Temperature is 36.6 degrees, heart rate 96 beats per minute, respiration rate 16, blood pressure 130/82 mmHg, oxygen saturation 97% on room air. I's and O's relatively even. Weight 68.9 kilograms. GENERAL: No acute distress. He is alert and oriented. HEENT: Anicteric sclerae. NECK: No appreciable JVD. No bruits. Normal carotid upstrokes bilaterally. CARDIAC EXAMINATION: PMI was nonpalpable. There was no ventricular heave. Soft S1 and S2 with distant heart sounds. No audible murmurs, rubs or gallops. LUNGS: Decreased breath sounds throughout, but otherwise clear. ABDOMEN: Soft, nontender, nondistended. Normoactive bowel sounds. CHEST: Nontender. EXTREMITIES: 2+ radial pulses bilaterally. 1+ dorsalis pedis pulses bilaterally. No cyanosis or edema. No palpable cords. PSYCHIATRIC: Affect appears appropriate. LABORATORY DATA: Sodium 137, potassium 4.6, BUN 22, creatinine 0.85. Magnesium 2.3. Triglycerides 192, total cholesterol 171, LDL 86, HDL 47, WBC 15.89, hemoglobin 12.7, platelets 294. INR is 1. Brain MRI and MRA results were reviewed. Carotid artery duplex results reviewed. Echocardiogram 02/05/2017 reviewed. Normal LV systolic function and size. EF 60%-65%. No regional wall motion abnormalities. Type 1 diastolic dysfunction. Small right to left interatrial shunt following agitated saline injection with Valsalva suggesting PFO. No significant valvular abnormalities. Telemetry strips reviewed. Sinus rhythm with intermittent sinus tachycardia. There is no ECG available for review. ASSESSMENT AND PLAN: 1. Patent foramen ovale: He appears to have a patent foramen ovale on echocardiogram and presented with transient ischemic attack symptoms. Recommend antiplatelet therapy, which has been addressed by neurology. There is no cardiac chamber enlargement to suggest atrial septal defect and the shunt appeared small. 2. Chest pain: He has atypical chest discomfort. He had a recent nuclear perfusion study although the results are not available at this time. He will follow through with obtaining these results on Monday or Monday of the upcoming week. He has a pending appointment with cardiology in the [facility]. He should continue to follow up in regards to the results of the nuclear perfusion study and any other treatment as necessary. 3. Hypertension: Blood pressure adequately controlled. No changes made at this time. 4. Sinus tachycardia: He has had intermittent sinus tachycardia: No specific etiology identified at this time. If this is an ongoing issue, could consider beta-nicole if no contraindications; however, there is apparently some form of intolerable antihypertensive agent that has caused significant issues in the past. Therefore, this can be followed up by his PCP and local director of materials. 5. Carotid artery stenosis: Recommend high intensity statin therapy; however, he has not tolerated other statins in the past and there is documentation that he may have not tolerated higher doses. Continue current dose for now. This can be further managed over time. Recommend routine surveillance with his PCP or local director of materials. 6. Questionable ventricular tachycardia: He did not have ventricular tachycardia. Telemetry strips were reviewed in detail. He had artifacts. It was found that he was actually playing a game where he was rolling a dice and shaking his arm at around that time and that likely correlates with the artifact. QRS complexes are seen marching through in the background of the artifact. No arrhythmia identified. 7. Disposition: He is in the process of being discharged by Dr. Mariee of the primary service. The patient's care has been discussed with Dr. Mariee Thank you for allowing me to participate in care of Mr. Martinez.
--- NOTE | 2017-02-23 15:59 | Discharge Summary ---
Discharge Summary Date of Service February 05, 2017. 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 Normal left ventricular size and systolic function. EF 60-65%. No regional wall motion abnormalities. No left ventricular hypertrophy. Type 1 diastolic dysfunction * 2. Small right to left inter atrial shunt following agitated saline injection with Valsalva, suggesting PFO. * 3. No significant valvular abnormalities. * 4. No prior study available for comparison. MRI brain-microangiopathic hcnage, negative otherwise MRA Head, Neck- Left origin GRICELDA 3 mm aneurysm Carotid artery US- left ICA 50% stenosis Consultations: Cardiology Neurology Medication Reconciliation New Medications: Clopidogrel Bisulfate (Clopidogrel) 75 Mg Tab 75 MG PO QAM for 30 Days, #30 TAB Isosorbide Mononitrate (Isosorbide Mononitrate ER) 30 Mg Tabcr 30 MG PO DAILY for 30 Days Prednisone (Prednisone) 10 Mg Tab 10 MG PO BID for 2 Days, TAB x 1 day then 10mg daily x 1 day then stop (he has this at home already) Continued Medications: Atorvastatin (Lipitor) 20 Mg Tab 1 TAB PO DAILY for 90 Days, #90 TAB 1 Refill Budesonide/Formoterol Fumarate (Symbicort 160-4.5 Mcg/Act) 60 Puffs/Inhaler Aero 2 INHA INH BID Guaifenesin La (Guaifenesin Er) 600 Mg Tabcr 600 MG PO Q12H, TAB Hydrocodone/Acetaminophen 5MG/325MG ([place] 5MG/325MG) Tab 1 TAB PO TID PRN for Pain for 30 Days, #90 TAB PRN PAIN Ipratropium-Albuterol (Combivent Respimat) 1 Aer Aer 1 PUFFS INH Q4 PRN for Wheezing, INH Lisinopril (Lisinopril) 10 Mg Tab 1 TAB PO DAILY Niacinamide (Niacin) 500 Mg Tab 500 MG PO DAILY, TAB Nicotine (Nicoderm Cq 21MG Patch) 21 Mg/24 Hr Dis 1 PATCH TD DAILY, PATCH Omeprazole (Prilosec) 20 Mg Cap 1 CAP PO DAILY for 30 Days, #30 CAP 5 Refills Discontinued Medications: Isosorbide Mononitrate (Isosorbide Mononitrate) 20 Mg Tab 30 MG PO DAILY Referrals At Discharge Follow up Referrals: Neurologist Referral - Within a Month with Mike Hale M.D. Discharge Exam Doing very well on day of discharge, no further episodes of weakness. Feels completely back to baseline. Physical Exam General Appearance: no apparent distress, + thin Eyes: normal inspection, sclerae normal ENT: hearing grossly normal Neck: supple, no adenopathy, thyroid normal, trachea midline, + pertinent finding (no TTP over mastoid bones) Respiratory/Chest: no respiratory distress, no accessory muscle use, + decreased breath sounds (diminished significantly throughout with very faint wheezing) Cardiovascular: no edema, no gallop, + tachycardia (with reg rhythm), + systolic murmur (2/6 at RUSB) Abdomen: normal bowel sounds, non tender, soft, + pertinent finding ( incisional scars on right and left side) Extremities: non-tender, no pedal edema, no calf tenderness Neurologic/Psychiatric: no motor/sensory deficits, alert, normal mood/affect, oriented x 3 Skin: normal color, warm/dry, no rash Lymphatic: no adenopathy Review of Systems: Constitutional: No fever, No chills Eyes: No problem reported ENT: + tinnitus (chronic), No hearing loss Respiratory: No shortness of breath Cardiovascular: No chest pain Abdomen: No pain Musculoskeletal: No problem reported Neurologic: No paralysis, No weakness, No numbness/tingling Psychiatric: No problem reported Endocrine: No problem reported Hematologic / Lymphatic: No problem reported Integumentary: No problem reported Hospital Course 66 y/o M Hx HTN, HPL, COPD, splenectomy. Pt was recently treated for a pneumonia and had been d/cd from [facility] a few days prior. He was descending his stairway earlier in the day and states that he acutely lost strength in his R knee and then at the bottom of the stairs he felt his whole body become flaccid and had great difficulty speaking. He was unable to express himself for several minutes although he states that he clearly comprehended what was being said to him. The pt was transported to the hospital an states that his symptoms spontaneously resolved on route like a switch was turned off. He denies CP, SOB, N/V, FLOOD, visual deficits or recent fevers. He was admitted for an episode of whole body weakness and difficulty with speech. It is unclear what the cause of this was but may have been related to stress and possibly from not taking his morning medications the morning of the his stress test, and perhaps just from the stress of the test itself. Nonetheless,he had a normal brain MRI and the Neurologist thought it was unlikely that he had a seizure. He was found to have a moderate blockage in the left carotid artery which should be followed annually and treated with ASA, statin and smoking cessation. His ECHO showed a PFO, but nothing else significant. It is recommended that he remain on Plavix to prevent strokes. He had no significant cardiac arrhythmias on telemetry monitoring. As for his recent pneumonia, he should have a repeat chest xray in 3-4 weeks to make sure it is resolved, and finish out his prednisone as scheduled over the next 2 days. He should also be referred to a Neurosurgeon for the 3 millimeter aneurysm that was found in the brain to see if he needs to have it repaired. This aneurysm did not cause the symptoms that he had, but does need to be followed. He was also incidentally noted to have a large right sided mastoid effusion that is fairly asymptomatic. He should follow up with ENT within 1 month as well. HTN/Left ICA stenosis 50%- -continue lisinopril -continue statin and Plavix, isosorbide Counseled on benefits of continued smoking cessation. Total Time Spent: Greater than 30 minutes This includes examination of the patient, discharge planning, medication reconciliation, and communication with other providers. Discharge Instructions Please refer to the electronic Patient Visit Report (Discharge Instructions) for additional information. Follow-Up PCP within 1 week Neuro within 1 month Additional Copies To Chelita Fuller
== END 2017-02-05 15:46 | disposition home or self-care (01) | DRG 101 ==
LOC: C.2T 23:20
PROVIDERS: ADMIT Internal Medicine; ATTEND Family Medicine
DX: R56.9 Unspecified convulsions (principal); J44.9 Chronic obstructive pulmonary disease, unspecified; I10 Essential (primary) hypertension; M48.06 Spinal stenosis, lumbar region; K21.9 Gastro-esophageal reflux disease without esophagitis; Z90.81 Acquired absence of spleen; F32.9 Major depressive disorder, single episode, unspecified; Z82.49 Family history of ischemic heart disease and other diseases of the circulatory system; F17.210 Nicotine dependence, cigarettes, uncomplicated